=== PATIENT | male | born 1940 | race Caucasian/White ===

== ENCOUNTER 2017-03-06 12:49 | Observation (INO) ==
[2017-03-06 13:17] LABS: Basophils % 0.4 %; Eosinophils # 0.1 K/mcL (0.0-0.6); Eosinophils % 0.9 %; Hematocrit 43.2 % (37.5-50.1); Hemoglobin 14.7 g/dL (12.9-16.9); Immature Granulocytes % 0.4 % (0-4); Lymphocytes # 1.3 K/mcL (0.6-4.6); Lymphocytes % 13.5 %; Mean Corpuscular Hemoglobin 31.5 pg (28.0-33.3); Mean Corpuscular Volume 92.7 fL (83.0-100.0); Mean Platelet Volume 10.9 fL (9.4-12.4); Monocytes % 10.3 %; Neutrophils # 7.3 K/mcL (1.6-8.9); Platelet Count 185 K/mcL (140-400); Red Blood Count 4.66 M/mcL (4.19-5.50); Red Cell Distribution Width 13.3 % (11.5-14.5); Segmented Neutrophils % 74.5 %
[2017-03-06 13:22] LABS: INR 2.8; Prothrombin Time 31.5 Seconds (9.4-12.1)
[2017-03-06 13:34] LABS: Alanine Aminotransferase 24 Units/L (0-55); Albumin 3.6 g/dL (3.5-5.0); Albumin/Globulin Ratio 1.1 (1.1-2.2); Alkaline Phosphatase 124 Units/L (38-126); Aspartate Amino Transferase 25 Units/L (5-34); BUN/Creatinine Ratio 17 (6-26); Bilirubin,Direct 0.6 mg/dL (0.0-0.5); Bilirubin,Indirect 1.2 mg/dL (0.0-1.2); Bilirubin,Total 1.8 mg/dL (0.2-1.2); Blood Urea Nitrogen 18 mg/dL (8-26); Carbon Dioxide 24 mEq/L (19-29); Chloride 106 mEq/L (98-109); Globulin 3.3 g/dL (2.4-3.5); Glucose 85 mg/dL (70-99); Magnesium 1.8 mg/dL (1.6-2.6); Osmolality,Calculated 291 (280-300); Potassium 3.8 mEq/L (3.5-4.5); Sodium 140 mEq/L (136-145); Total Protein 6.9 g/dL (6.0-8.3); eGFR For African Americans > 60 (> 60); eGFR For Non-African Americans > 60 (> 60)
[2017-03-06 13:40] LABS: Ethanol < 10 mg/dL (0-10)
--- NOTE | 2017-03-06 13:43 | Emergency Department Note ---
Disposition Clinical Impression: Weakness, Bradycardia Disposition: Admitted As Inpatient Referrals: Em Queen MD [Primary Care Provider] - Forms: ED Satisfaction Letter General Adult HPI - General Chief complaint: ED Altered Mental Status Stated complaint: AMS Time Seen by Provider: 03/06/17 13:00 Source: patient Limitations: no limitations Nursing Notes Reviewed: Yes Vital Signs Reviewed: Yes - History of Present Illness HPI Narrative: Patient brought here for evaluation of weakness and near syncope. Patient has had multiple episodes today requiring him to sit on the floor. Episode started at 10 AM. Patient states that they were at Dr. Raines's, sifter and miller, for further investigation of loop recorder. Loop recorder was not about terminated at this time. Patient continues to feel generalized weakness. Patient has no focal deficits at this time. Finger to nose unov-it-aitt intact. 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 Responds to questions but is confused which the states is secondary to his dementia. Pain Scale: 0 - Related Data Home Medications Medication Instructions Recorded Confirmed Atorvastatin [Lipitor] 10 mg PO MOWEFR 03/06/17 03/06/17 Donepezil [Aricept] 10 mg PO HS 03/06/17 03/06/17 Fluticasone Propionate Nasal 50 mcg NS DAILY PRN 03/06/17 03/06/17 [Flonase] Memantine HCl 5 mg PO BID 03/06/17 03/06/17 Metoprolol [Lopressor] 50 mg PO BID 03/06/17 03/06/17 Nitroglycerin [Nitrostat] 0.4 mg SL Q5M PRN 03/06/17 03/06/17 Ubidecarenone [Co Q-10] 100 mg PO MOWEFR 03/06/17 03/06/17 Vit C/Vit E/Lutein/Min/[place]-3 1 each PO QAM 03/06/17 03/06/17 [Ocuvite Softgel] Warfarin [Coumadin] 3 mg PO QPM 03/06/17 03/06/17 Warfarin [Coumadin] 4 mg PO QPM 03/06/17 03/06/17 amLODIPine [Norvasc] 5 mg PO QAM 03/06/17 03/06/17 Allergies Allergy/AdvReac Type Severity Reaction Status Date / Time No Known Allergies Allergy Verified 08/28/15 20:37 Review of Systems: CONSTITUTIONAL: Weakness No weight loss, fever, chills, HEENT: Eyes: No visual changes. Ears, Nose, Throat: No hearing loss, difficulty talking or unable to swallow. SKIN: No rash or itching. CARDIOVASCULAR: Dizziness, lightheadedness No chest pain, chest pressure or chest discomfort. No palpitations or edema. RESPIRATORY: No shortness of breath, cough or sputum. GASTROINTESTINAL: No anorexia, nausea, vomiting or diarrhea. No abdominal pain or blood. GENITOURINARY: No burning on urination or hematuria. NEUROLOGICAL: dizziness, near- syncope; No headache, paralysis, ataxia, numbness or tingling in the extremities. No change in bowel or bladder control. MUSCULOSKELETAL: No muscle pain, back pain, joint pain or stiffness. Past Medical History - Past Medical History Medical history: Reports: coronary artery disease, dementia, hyperlipidemia, myocardial infarction, other Surgical history: Reports: other Psychiatric history: Reports: no psych history - Social History Smoking Status: Never smoker Smokeless Tobacco Status: No Alcohol use: Reports: none Drug use: Reports: none Physical Exam General appearance: NAD, conversant Eyes: anicteric sclerae, moist conjunctivae; PERRL HENT: Atraumatic; oropharynx clear with moist mucous membranes and no mucosal ulcerations Neck: Normal inspection; Trachea midline; FROM, supple Lungs: CTA, with normal respiratory effort and no intercostal retractions CV: RRR, no MRGs Abdomen: Soft, non-tender; no rebound or gaurding Extremities: No peripheral edema or extremity lymphadenopathy Skin: Normal temperature; no rash, ulcers or lesions Psych: Appropriate mood and affect - General Limitations: no limitations General appearance: alert - Expanded Neurological Exam Patient oriented to: Present: person, place. Absent: time Speech: Present: fluid speech Cranial nerves: EOM function (II, III, IV, ): Normal, facial sensation (V): Normal, facial palsy (VII): Normal, gag reflex (IX): Normal, spinal accessory function (XI): Normal, tongue deviation (XII): Normal Cerebellar function: finger to nose: Normal, heel to infante: Normal Motor strength - LUE: 5/5 Motor strength - RUE: 5/5 Motor strength - LLE: 5/5 Motor strength - RLE: 5/5 Sensory exam upper extremity: light touch: Normal Sensory exam lower extremity: light touch: Normal Coma Scale Eye Opening: Spontaneous Coma Scale Motor Response: Obeys Commands Coma Scale Verbal Response: Oriented Coma Scale Total: 15 Course - Reevaluation(s) Reevaluation #1: Patient remained stable at this time. Continued weakness. Patient has had episodes of bradycardia. Lab work is otherwise unremarkable. Head CT negative for acute stroke. Chest x-ray is unremarkable. Will discuss with the hospital team regarding further investigation of loop recorder and near-syncope. - Consultations Consultation #1: Discussed with Dr. Rao. Patient accepted for admission. Vital Signs Temperature 97.3 F L 03/06/17 12:53 Pulse Rate 58 03/06/17 12:53 Respiratory Rate 18 03/06/17 12:53 Blood Pressure 139/78 03/06/17 12:53 O2 Sat by Pulse Oximetry 96 03/06/17 12:53 Temperature 97.3 F L 03/06/17 12:53 Pulse Rate 54 03/06/17 16:00 Respiratory Rate 18 03/06/17 16:00 Blood Pressure 114/74 03/06/17 16:00 O2 Sat by Pulse Oximetry 99 03/06/17 16:00 Oxygen Delivery Oxygen Delivery Room Air Medical Decision Making - Medical Records Medical records reviewed: Yes I reviewed the patient's medical records. - Lab Data Lab results reviewed: Yes I reviewed the patient's lab results. Result diagrams: 03/06/17 12:42 03/06/17 12:42 Lab Results 03/06/17 03/06/17 03/06/17 Range/Units 12:42 12:42 12:42 WBC 9.8 (4.3-11.1) K/mcL RBC 4.66 (4.19-5.50) M/mcL Hgb 14.7 (12.9-16.9) g/dL Hct 43.2 (37.5-50.1) % MCV 92.7 (83.0-100.0) fL MCH 31.5 (28.0-33.3) pg MCHC 34.0 (31.6-35.5) g/dL RDW 13.3 (11.5-14.5) % Plt Count 185 (140-400) K/mcL MPV 10.9 (9.4-12.4) fL Immature Gran % 0.4 (0-4) % Seg Neutrophils % 74.5 % Lymphocytes % 13.5 % Monocytes % 10.3 % Eosinophils % 0.9 % Basophils % 0.4 % Neutrophils # 7.3 (1.6-8.9) K/mcL Lymphocytes # 1.3 (0.6-4.6) K/mcL Monocytes # 1.0 (0.0-1.3) K/mcL Eosinophils # 0.1 (0.0-0.6) K/mcL Basophils # 0.0 (0.0-0.2) K/mcL PT (9.4-12.1) Seconds INR Sodium 140 (136-145) mEq/L Potassium 3.8 (3.5-4.5) mEq/L Chloride 106 (98-109) mEq/L Carbon Dioxide 24 (19-29) mEq/L BUN 18 (8-26) mg/dL Creatinine 1.05 (0.72-1.25) mg/dL Est GFR ( Amer) > 60 (> 60) Est GFR (Non-Af Amer) > 60 (> 60) BUN/Creatinine Ratio 17 (6-26) Glucose 85 (70-99) mg/dL Calculated Osmolality 291 (280-300) Calcium 9.0 (8.6-10.8) mg/dL Magnesium 1.8 (1.6-2.6) mg/dL Total Bilirubin 1.8 H (0.2-1.2) mg/dL Direct Bilirubin 0.6 H (0.0-0.5) mg/dL Indirect Bilirubin 1.2 (0.0-1.2) mg/dL AST 25 (5-34) Units/L ALT 24 (0-55) Units/L Alkaline Phosphatase 124 (38-126) Units/L Troponin I 0.02 (0-0.03) ng/mL Serum Total Protein 6.9 (6.0-8.3) g/dL Albumin 3.6 (3.5-5.0) g/dL Globulin 3.3 (2.4-3.5) g/dL Albumin/Globulin Ratio 1.1 (1.1-2.2) TSH 2.774 (0.350-4.840) mcIU/mL Urine Color (Yellow) Urine Clarity (Clear) Urine pH (5.0-8.0) pH Units Ur Specific Effort (1.010-1.025) Urine Protein (Neg-Trace) mg/dL Urine Glucose (UA) (Normal) mg/dL Urine Ketones (Negative) mg/dL Urine Blood (Negative) Urine Nitrite (Negative) Urine Bilirubin (Negative) Urine Urobilinogen (Normal) mg/dL Ur Leukocyte Esterase (Negative) Urine Microscopic RBC (0-3) per hpf Urine Microscopic WBC (0-3) per hpf Ur Squamous Epith Cells (None-Few) per lpf Urine Bacteria (None-Few) per hpf Hyaline Casts (None-Few) per lpf Ur Culture Indicated? (NO) Ethyl Alcohol < 10 (0-10) mg/dL 03/06/17 03/06/17 Range/Units 12:42 14:40 WBC (4.3-11.1) K/mcL RBC (4.19-5.50) M/mcL Hgb (12.9-16.9) g/dL Hct (37.5-50.1) % MCV (83.0-100.0) fL MCH (28.0-33.3) pg MCHC (31.6-35.5) g/dL RDW (11.5-14.5) % Plt Count (140-400) K/mcL MPV (9.4-12.4) fL Immature Gran % (0-4) % Seg Neutrophils % % Lymphocytes % % Monocytes % % Eosinophils % % Basophils % % Neutrophils # (1.6-8.9) K/mcL Lymphocytes # (0.6-4.6) K/mcL Monocytes # (0.0-1.3) K/mcL Eosinophils # (0.0-0.6) K/mcL Basophils # (0.0-0.2) K/mcL PT 31.5 H (9.4-12.1) Seconds INR 2.8 Sodium (136-145) mEq/L Potassium (3.5-4.5) mEq/L Chloride (98-109) mEq/L Carbon Dioxide (19-29) mEq/L BUN (8-26) mg/dL Creatinine (0.72-1.25) mg/dL Est GFR ( Amer) (> 60) Est GFR (Non-Af Amer) (> 60) BUN/Creatinine Ratio (6-26) Glucose (70-99) mg/dL Calculated Osmolality (280-300) Calcium (8.6-10.8) mg/dL Magnesium (1.6-2.6) mg/dL Total Bilirubin (0.2-1.2) mg/dL Direct Bilirubin (0.0-0.5) mg/dL Indirect Bilirubin (0.0-1.2) mg/dL AST (5-34) Units/L ALT (0-55) Units/L Alkaline Phosphatase (38-126) Units/L Troponin I (0-0.03) ng/mL Serum Total Protein (6.0-8.3) g/dL Albumin (3.5-5.0) g/dL Globulin (2.4-3.5) g/dL Albumin/Globulin Ratio (1.1-2.2) TSH (0.350-4.840) mcIU/mL Urine Color Dark Yellow (Yellow) Urine Clarity Clear (Clear) Urine pH 6.0 (5.0-8.0) pH Units Ur Specific Effort 1.030 H (1.010-1.025) Urine Protein 30 H (Neg-Trace) mg/dL Urine Glucose (UA) Normal (Normal) mg/dL Urine Ketones 80 H (Negative) mg/dL Urine Blood Negative (Negative) Urine Nitrite Negative (Negative) Urine Bilirubin Negative (Negative) Urine Urobilinogen Normal (Normal) mg/dL Ur Leukocyte Esterase Negative (Negative) Urine Microscopic RBC 0-3 (0-3) per hpf Urine Microscopic WBC 0-3 (0-3) per hpf Ur Squamous Epith Cells Moderate H (None-Few) per lpf Urine Bacteria None Seen (None-Few) per hpf Hyaline Casts None Seen (None-Few) per lpf Ur Culture Indicated? NO (NO) Ethyl Alcohol (0-10) mg/dL - Radiology Data Radiology results reviewed: Yes I reviewed the patient's radiology results. - EKG Data EKG #1 EKG attestation: Yes I reviewed and interpreted this EKG. EKG results narrative: EKG shows sinus rhythm with ventricular rate of 66 bpm. W[place] 135. QRS 89. QTC 458. Patient has no significant ST elevations or depressions. Patient has T-wave inversions in the inferior leads. EKG consistent with previous EKG of 08/28/15.
[2017-03-06 13:54] LABS: Thyroid Stimulating Hormone 2.774 mcIU/mL (0.350-4.840)
--- NOTE | 2017-03-06 14:22 | Emergency Department Note ---
START Narrative - START START: I examined this patient and my medical decision-making was reviewed with the FOOD SERVICE AIDE/PA/Advanced Practice Nurse/Resident Physician. I agree with the documented findings, disposition and treatment plan as described except to the extent set forth below.
[2017-03-06 15:01] LABS: Bilirubin,Urine Negative (Negative); Blood,Urine Negative (Negative); Clarity,Urine Clear (Clear); Color,Urine Dark Yellow (Yellow); Glucose,Urine (UA) Normal (Normal); Ketones,Urine 80 mg/dL (Negative); Leukocyte Esterase,Urine Negative (Negative); Nitrite,Urine Negative (Negative); Protein,Urine 30 mg/dL (Neg-Trace); Urobilinogen,Urine Normal (Normal)
[2017-03-06 15:03] LABS: Bacteria,Urine None Seen per hpf (None-Few); Hyaline Casts,Urine None Seen per lpf (None-Few); RBC,Urine 0-3 per hpf (0-3); Squamous Epithelial Cell,Urine Moderate per lpf (None-Few); WBC,Urine 0-3 per hpf (0-3)
--- NOTE | 2017-03-06 18:13 | Event Note ---
Date of Encounter: 03/06/17 Time of Encounter: 18:11 Patient seen and examined with nurse practitioner. Patient presents with presyncopal episodes. He feels lightheaded sweaty prior to these episodes. Possibility of orthostasis versus cardiac arrhythmias. Will check orthostatics. He has a loop recorder that will be interrogated. Cardiology consultation. Syncope workup. He has no known prior history of coronary artery disease. No infectious etiology. telemetry Monitoring.
[2017-03-06] MEDS ORDERED: Ondansetron 4 MG/2 ML VIAL IVP PRN (18:54)
[2017-03-06] MEDS ORDERED: Naloxone 0.4 MG/ML INJ IVP PRN (18:54)
[2017-03-06] MEDS ORDERED: Acetaminophen 325 MG TABLET PO PRN (18:54)
[2017-03-06] MEDS ORDERED: Nitroglycerin 0.4 MG TAB.SUBL SL PRN (19:06)
[2017-03-06] MEDS ORDERED: Fluticasone Propionate Nasal 50 MCG/SPRAY BOTTLE NS PRN (19:06)
--- NOTE | 2017-03-06 19:10 | Internal Med History&Physical ---
Date of Encounter: 03/06/17 Time of Encounter: 18:00 Assessment and Plan (1) Pre-syncope Current visit: Yes Status: Acute Assess: Mr. Zamora presents with chief complaint of pre-syncopal episodes x 3 today (02/15). Patient reports episodes began at approximately 10 AM. Patient reports generalized weakness but has no focal deficits and neurological status is intact. Patient states presyncopal episodes have occurred in the past and he has become accustomed to sitting on the floor when he begins to feel altered. Patient reports he has a loop recorder and his loop recorder has been interrogated in the past due to similar episodes. Mr. Zamora's states he became diaphoretic during this episode. Plan: Cardiology consult ordered and placed for interrogation of loop recorder Continuous cardiac telemetry ordered EEG ordered EV echocardiogram ordered Bilateral carotid Doppler ordered Orthostatic BPs ordered Orthostatic vital signs ordered twice a day Hold Lopressor due to possible hypotension Hold Norvasc due to possible hypotension Falls precautions/[id number] only Monitor patient and vital signs (2) Dementia Current visit: Yes Status: Acute Assess: Patient presents with history of dementia. Plan: Continue Aricept Continue Namenda Qualifiers: Dementia type: unspecified type Dementia behavioral disturbance: without behavioral disturbance Qualified Code(s): F03.90 - Unspecified dementia without behavioral disturbance (3) CAD (coronary artery disease) Current visit: Yes Status: Acute Assess: Patient presents with history of chronic coronary artery disease. Patient currently has loop recorder and has experienced presyncopal episodes in the past with loop recorder interrogation required. Plan: Cardiology consult ordered and placed for interrogation of loop recorder Continuous cardiac telemetry ordered EEG ordered EV echocardiogram ordered Bilateral carotid Doppler ordered Continue Lipitor Qualifiers: Coronary Disease-Associated Artery/Lesion type: unspecified vessel or lesion type [place] vs. transplanted heart: [place] heart Associated angina: angina presence unspecified Qualified Code(s): I25.10 - Atherosclerotic heart disease of [place] coronary artery without angina pectoris (4) Hyperlipidemia Current visit: Yes Status: Acute Assess: Patient presents with history of chronic hyperlipidemia. Plan: Continue Lipitor Lipid panel ordered Qualifiers: Hyperlipidemia type: unspecified Qualified Code(s): E78.5 - Hyperlipidemia , unspecified (5) DVT prophylaxis Current visit: Yes Status: Acute Assess: Patient to be placed on DVT prophylaxis due to inpatient protocol. Plan: Continue Coumadin therapy Anti-embolic stockings ordered Internal Medicine - H&P: HPI Chief complaint: Pre-syncope Admitted From: Emergency Dept Plans for Post Hospital Care: Home History of present illness: Mr. Zamora is a 77 year old male presents from the ED with chief complaint of pre -syncopal episodes x 3 today (03/06/17). Patient reports episodes began at approximately 10 AM. Patient reports generalized weakness but has no focal deficits and neurological status is intact. Patient states presyncopal episodes have occurred in the past and he has become accustomed to sitting on the floor when he begins to feel altered. Patient reports he has a loop recorder and his loop recorder has been interrogated in the past due to similar episodes. Mr. Zamora's states he became diaphoretic during this episode. Denies recent illness, fever, chills, chest pressure or discomfort, anorexia, nausea, vomiting, or diarrhea. Patient to be admitted as observation status with cardiology consult ordered and placed with Dr. Arreola. Patient will have orthostatic BP and vital signs, EV echocardiogram, bilateral carotid Doppler, EEG, and continuous cardiac telemetry. Patient is falls precautions with up-with -assist only when out of bed. Patient to be monitored closely. Past Med Surg Social Fam HX - Past Medical History Source: patient Medical history: atrial fibrillation, coronary artery disease, dementia, hyperlipidemia, myocardial infarction, other Psychiatric history: no psych history - Past Surgical History Surgical History: angioplasty/stent, other - Social History Smoking Status: Former smoker (Reports quitting in 1986) Packs per day: 4 PPD Smokeless Tobacco Status: No Alcohol use: none Drug use: none Occupational status: retired Current living situation: Home, With Family Activity Level: Independent ambulation Recent Out of Country Travel Within the Last 8 Weeks: No Exposure or Possible Exposure to Illness During Travel: No - Family History Mother Race: Family Member Ethnicity: Non- Living Status: Age at : 76 Hx Family Cardiac Disorders: Yes (HD) Hx Family Neurologic Disorders: Yes (Alzheimer's disease) Father Race: Family Member Ethnicity: Non- Living Status: Age at : 50 Cause of : Brain aneurysm Hx Family Cardiac Disorders: Yes (Brain aneurysm) Brother Race: Family Member Ethnicity: Non- Living Status: Age at : 49 Cause of : Esophageal cancer Hx Family Cardiac Disorders: Yes (Esophageal) Sister Race: Family Member Ethnicity: Non- Living Status: Age at : 70 Cause of : [place] Hx Family Cardiac Disorders: Yes ([place]) Internal Medicine - H&P: Meds Atorvastatin [Lipitor] 10 mg PO MOWEFR 03/06/17 [History] Donepezil [Aricept] 10 mg PO HS 03/06/17 [History] Fluticasone Propionate Nasal [Flonase] 50 mcg NS DAILY PRN 03/06/17 [History] Memantine HCl 5 mg PO BID 03/06/17 [History] Metoprolol [Lopressor] 50 mg PO BID 03/06/17 [History] Nitroglycerin [Nitrostat] 0.4 mg SL Q5M PRN 03/06/17 [History] Ubidecarenone [Co Q-10] 100 mg PO MOWEFR 03/06/17 [History] Vit C/Vit E/Lutein/Min/[place]-3 [Ocuvite Softgel] 1 each PO QAM 03/06/17 [History ] Warfarin [Coumadin] 3 mg PO QPM 03/06/17 [History] Warfarin [Coumadin] 4 mg PO QPM 03/06/17 [History] amLODIPine [Norvasc] 5 mg PO QAM 03/06/17 [History] Allergies No Known Allergies Allergy (Verified 08/28/15 20:37) All Systems PM: A 10-system review of systems was performed and is negative for pertinent findings except as documented above in the HPI. - Constitutional Constitutional: as per HPI, weakness, no chills, no fever(s), no night sweats - EENT Eyes: no change in vision, no discharge, no pain, no photophobia Ears: no ear discharge, no ear pain, no tinnitus Nose, mouth and throat: no dysphagia, no nasal discharge, no neck pain, no sore throat - Breasts Breasts: as per HPI - Cardiovascular Cardiovascular ROS IM: as per HPI, diaphoresis, syncope (Pre-syncope x3), no chest pain, no dyspnea, no lightheadedness, no palpitations - Respiratory Respiratory: no cough, no dyspnea, no wheezing, no excessive phlegm production - Gastrointestinal Gastrointestinal: no abdominal pain, no diarrhea, no hematemesis, no hematochezia, no melena, no nausea, no vomiting - Genitourinary Genitourinary ROS male: as per HPI - Musculoskeletal Musculoskeletal ROS IM: no numbness, no tingling - Integumentary Integumentary IM: no rash, no unusual bruising - Neurological Neurological ROS: no confusion, no convulsions, no focal weakness, no numbness, no tingling, no tremor(s) - Psychiatric Psychiatric: as per HPI - Endocrine Endocrine IM: as per HPI - Hematologic/Lymphatic Hematologic/Lymphatic: no easy bruising - Allergic/Immunologic Allergic/Immunologic: as per HPI - Constitutional Vitals: Temp Pulse Resp BP Pulse Ox 98.3 F 55 16 146/73 96 03/06/17 17:28 03/06/17 17:28 03/06/17 17:28 03/06/17 17:28 03/06/17 17:28 General appearance: Present: cooperative, A&O X 3, pleasant, no acute distress, answers questions appropriately - Head Head exam: Present: atraumatic, normocephalic - Eye Eye exam: Present: PERRL, conjuntiva pink, sclera anicteric Pupils: Present: PERRL - ENT ENT exam: Present: normal exam, normal external ear exam - Neck Neck exam general surgery: Present: supple, trachea midline. Absent: lymphadenopathy - Respiratory Respiratory exam: Present: CTAB. Absent: accessory muscle use, rales, rhonchi, wheezes - Cardiovascular Cardiovascular exam: Present: RRR, +S1, +S2. Absent: diastolic murmur, gallop, rubs, systolic murmur - GI/Abdominal GI/Abdominal exam: Present: normal bowel sounds, soft, no peritoneal signs. Absent: distended, tenderness - Rectal Rectal exam: Present: deferred - Additional comments: exam deferred. - Extremities Exam Extremities exam: Present: warm, radial pulses palpable and symetrical. Absent : calf tenderness, cyanotic, pedal edema - Back Exam Back exam: Present: normal inspection - Neurological Exam Neurological exam: Present: CN II-XII intact, oriented X3, no focal deficits. Absent: pronater drift, facial droop, speech deficit - Psychiatric Psychiatric exam: Present: normal affect, normal mood - Skin Skin exam: Present: dry, intact Internal Med - H&P Results - Labs CBC & Chem 7: 03/06/17 12:42 03/06/17 12:42 - EKG Data EKG shows normal: sinus rhythm Rate: normal - EKG Data Prior EKG available for review: yes Interpretation IM: normal EKG EKG comments: 03/06/17 19:24 EKG dated 08/28/15 shows sinus bradycardia, voltage criteria for LVH EKG dated 03/06/17 shows sinus rhythm - Diagnostic Studies Chest x-ray Additional comments: 1-View CXR of chest dated 03/06/17 shows no evidence of acute cardiopulmonary disease. No pneumonia, edema or other acute pulmonary process is demonstrated. Cardiac size is within normal limits. No evidence of pneumothorax. Cardiac and mediastinal silhouette is unchanged. No pleural effusion. CT scan - head Additional comments: Impressions Head CT 03/06/17 13:02 IMPRESSION: 1. No acute intracranial abnormality. 2. Mild chronic microvascular white matter ischemic disease with associated cerebral and cerebellar parenchymal volume loss. 3. Chronic right cerebellar hemisphere infarct. D/ / 03/06/2017 14:09:44 Driss Slaughter MD / víctor Interpreting Provider: Driss Slaughter MD
[2017-03-06] MEDS ORDERED: (Ubidecarenone [Co Q-10] 100 MG) PO SCH (19:15)
[2017-03-06 19:29] LABS: Hemoglobin A1C 5.1 %
[2017-03-07 00:48] LABS: INR 2.7; Prothrombin Time 29.8 Seconds (9.4-12.1)
[2017-03-07 00:51] LABS: Activated Partial Thrombo Time 43.5 Seconds (26.0-36.0)
[2017-03-07 00:57] LABS: Basophils # 0.1 K/mcL (0.0-0.2); Basophils % 0.7 %; Eosinophils # 0.3 K/mcL (0.0-0.6); Hematocrit 45.6 % (37.5-50.1); Hemoglobin 15.2 g/dL (12.9-16.9); Immature Granulocytes % 0.1 % (0-4); Lymphocytes # 2.1 K/mcL (0.6-4.6); Lymphocytes % 30.7 %; Mean Corpuscular HGB Conc 33.3 g/dL (31.6-35.5); Mean Corpuscular Hemoglobin 30.8 pg (28.0-33.3); Mean Corpuscular Volume 92.5 fL (83.0-100.0); Mean Platelet Volume 10.8 fL (9.4-12.4); Monocytes # 0.9 K/mcL (0.0-1.3); Monocytes % 12.9 %; Neutrophils # 3.4 K/mcL (1.6-8.9); Platelet Count 201 K/mcL (140-400); Red Blood Count 4.93 M/mcL (4.19-5.50); Red Cell Distribution Width 13.2 % (11.5-14.5); Segmented Neutrophils % 50.6 %
[2017-03-07 00:58] LABS: Alanine Aminotransferase 25 Units/L (0-55); Albumin 3.6 g/dL (3.5-5.0); Alkaline Phosphatase 133 Units/L (38-126); Aspartate Amino Transferase 25 Units/L (5-34); BUN/Creatinine Ratio 16 (6-26); Bilirubin,Total 1.9 mg/dL (0.2-1.2); Blood Urea Nitrogen 16 mg/dL (8-26); Calcium 9.4 mg/dL (8.6-10.8); Carbon Dioxide 28 mEq/L (19-29); Chloride 104 mEq/L (98-109); Cholesterol 202 mg/dL (< 200); Globulin 3.6 g/dL (2.4-3.5); Glucose 76 mg/dL (70-99); Magnesium 1.9 mg/dL (1.6-2.6); Osmolality,Calculated 294 (280-300); Potassium 3.4 mEq/L (3.5-4.5); Sodium 142 mEq/L (136-145); Total Protein 7.2 g/dL (6.0-8.3); Triglycerides 88 mg/dL (< 150); eGFR For African Americans > 60 (> 60); eGFR For Non-African Americans > 60 (> 60)
[2017-03-07 00:59] LABS: Chol/HDL Ratio 4.7 (0-4.9); HDL Cholesterol 43 mg/dL (40-59); LDL Cholesterol,Calculated 141 mg/dL (0-99)
--- NOTE | 2017-03-07 07:24 | Carotid Imaging Report ---
Carotid Duplex Patient Name:Sam Zamora Order Number:[id number] Procedure Date:03/06/2017 Date:1940Age:77 yrs Gender:Male Lt BP:146 / 73 mmHg Rt.BP:145 / 73 mmHgHeart Rate: Location:[facility] Room #: 2A32 Optician Manager:Ely Peralta Referring MD:Carlito Duarte CNP [employer] faculty member:None Reading MD:Robinson Bush MD Primary Indications:Pre-syncope x3 Risk Factors Yes/No Hypertension Hypercholesterolemia Smoker Previous Impressions: The right internal carotid artery has a 40-59% stenosis. The left carotid artery has minimal plaque throughout. Recommendations: Risk factor reduction. Follow-up carotid duplex in 1 year. Findings Carotid Duplex: Right: There is nonstenotic plaque in the right mid common carotid artery. There is smooth heterogeneous plaque. There is nonstenotic plaque in the right distal common carotid artery. There is irregular heterogeneous plaque. There is 40-59% stenosis in the right bifurcation. There is calcified plaque. There is 40-59% stenosis in the right proximal internal carotid artery. There is irregular heterogeneous plaque. Left: There is nonstenotic plaque in the left mid common carotid artery. There is smooth heterogeneous plaque. There is nonstenotic plaque in the left distal common carotid artery. There is smooth heterogeneous plaque. There is nonstenotic plaque in the left bifurcation. There is calcified plaque. There is nonstenotic plaque in the left proximal internal carotid artery. There is smooth heterogeneous plaque. Carotid Results Right PSV EDV Assessment Proximal CCA 99 15 Normal Mid CCA 97 21 Non Stenotic Plaque Distal CCA 99 22 Non Stenotic Plaque Bifurcation 117 29 40-59% stenosis Proximal ICA 143 32 40-59% stenosis Mid ICA 77 27 Normal Distal ICA 78 22 Normal ECA 131 10 Normal Vertebral Artery 47 8 Antegrade Flow Left PSV EDV Assessment Proximal CCA 69 13 Normal Mid CCA 65 17 Non Stenotic Plaque Distal CCA 82 14 Non Stenotic Plaque Bifurcation 45 10 Non Stenotic Plaque Proximal ICA 68 10 Non Stenotic Plaque Mid ICA 44 14 Normal Distal ICA 40 13 Normal ECA 88 15 Normal Vertebral Artery 46 9 Antegrade Flow Ratio's Right ICA/CCA Ratio: 1.47 ICA/CCA Values: 143/97 Left ICA/CCA Ratio: 1.05 ICA/CCA Values: 68/65 Updated by Robinson Bush MD on 03/07/2017 7:16:02 AM electronically signed on 03/07/2017 7:16:15 AM with status of Final
[2017-03-07] MEDS ORDERED: LUTEIN PO SCH (09:00)
[2017-03-07] MEDS ORDERED: VIT E PO SCH (09:00)
[2017-03-07] MEDS ORDERED: VIT C PO SCH (09:00)
[2017-03-07] MEDS ORDERED: OMEGA E PO SCH (09:00)
--- NOTE | 2017-03-07 11:26 | EEG/EMG/Oth Biometrics Report ---
EEG Procedure Report Date of procedure: 03/07/17 (Patient experiencing episodes of "presyncope") EEG Procedure: Routine EEG Procedure Note: This is a report of a 21 channel bipolar and referential montage EEG. There is no clearly identifiable posterior dominant alpha rhythm present at any time during the recording. The resting rhythm consists primarily of low-voltage theta as well as mixed theta frequencies. The rhythm is not reactive to eye opening. Hyperventilation is not performed during the recording. There is no sleep architecture identified during the study. The prevailing background frequencies consistent of mixed low voltage theta and anterior beta frequencies. Photic stimulation is performed and does not produce a driving response. The EKG rhythm strip reveals normal sinus rhythm at 72-78 beats per minute, with occasional PVCs. Impressions: This EEG recording is mildly abnormal and is consistent with a mild generalized encephalopathy. There is no evidence of epileptiform activity identified during the study. Comment: Beta frequencies are indeed recognized as a normal variant, however many also represent a posterior metabolic abnormalities as well as medication effect primarily benzodiazepines and barbiturates. A normal EEG does not preclude a diagnosis of seizure or epilepsy. If the clinical suspicion for seizure activity is high, serial EEGs or perhaps a prolonged recording may increase the yield. Please correlate clinically. The documentation in the history of HPI and plan were at least partially created by [employer] voice recognition technology by Dr. Dominguez. Errors in grammar, wording or other phrases may exist. If errors are found after the documentation signed, they will be addressed individually in the addendum section of this document when appropriate.
[2017-03-07 12:14] VITALS: BP 128/65
--- NOTE | 2017-03-07 13:36 | Event Note ---
Date of Encounter: 03/07/17 Time of Encounter: 14:26 - Cardiology Event Note Inpatient device check completed for Mr. Zamora for near syncope occurring around 1030 am while he was rotatilling his garden. Loop recorder check did not show any concerning arrhythmias at that time. Last recorded event was a short 18 second run of narrow complex tachycardia, HR 177 bpm on 03/07/17 at 0650am. 3 second pause seen on 02/24/17 at 2130. Telemetry review over last 24 hours shows SR with PAF. Avg HR 77 bpm. Patient has a history of afib and is currently on coumadin. Please call with questions.
--- NOTE | 2017-03-07 15:55 | Internal Med Progress Note ---
Date of Encounter: 03/07/17 Time of Encounter: 09:35 - Assessment and plan (1) Pre-syncope Current Visit: Yes Status: Acute Assessment and plan: Negative EEG for any seizure-like activity. 40-59% stenosis in the right internal carotid with minimal plaque in the left. 2-D echocardiogram shows normal ejection fraction of 60% with mild left-ventricular decide diastolic dysfunction. No evidence of PFO. Awaiting physical therapy evaluation. Check orthostatics. Will resume metoprolol at low dose. Cardiology recommends outpatient follow-up as patient's implantable loop recorder did not pear picker any serious abnormal rhythms besides A. fib. (2) Atrial fibrillation Current Visit: Yes Status: Chronic Assessment and plan: Patient's loop recorder was evaluated. Patient did not have any abnormalities during his episode yesterday. He did have episodes of narrow complex tachycardia concerning for A. fib. Patient is currently anticoagulated on Coumadin. Will resume metoprolol at a lower dose. Qualifiers: Atrial fibrillation type: paroxysmal Qualified Code(s): I48.0 - Paroxysmal atrial fibrillation (3) CAD (coronary artery disease) Current Visit: Yes Status: Chronic Assessment and plan: No chest pain. Continue statin and metoprolol Qualifiers: Coronary Disease-Associated Artery/Lesion type: unspecified vessel or lesion type [place] vs. transplanted heart: [place] heart Associated angina: angina presence unspecified Qualified Code(s): I25.10 - Atherosclerotic heart disease of [place] coronary artery without angina pectoris (4) Dementia Current Visit: Yes Status: Chronic Assessment and plan: On Namenda and Aricept Qualifiers: Dementia type: unspecified type Dementia behavioral disturbance: without behavioral disturbance Qualified Code(s): F03.90 - Unspecified dementia without behavioral disturbance (5) Hyperlipidemia Current Visit: No Status: Chronic Assessment and plan: On atorvastatin Qualifiers: Hyperlipidemia type: mixed hyperlipidemia Qualified Code(s): E78.2 - Mixed hyperlipidemia - Subjective Interval history: Patient is feeling better today. No new episodes of lightheadedness or dizziness. Has been able to ambulate to the bathroom without any issues. No palpitations. No fever chills. No chest pain. No shortness of breath. No seizure-like activity. No focal weakness - Constitutional Vitals: Temp Pulse Resp BP Pulse Ox 97.7 F 63 16 128/65 93 03/07/17 12:13 03/07/17 12:13 03/07/17 12:13 03/07/17 12:13 03/07/17 12:13 General appearance: Present: cooperative, A&O X 3, pleasant, no acute distress, answers questions appropriately - Respiratory Respiratory exam: Present: CTAB. Absent: accessory muscle use, rales, rhonchi, wheezes - Cardiovascular Cardiovascular exam: Present: RRR, +S1, +S2. Absent: diastolic murmur, gallop, rubs, systolic murmur - GI/Abdominal GI/Abdominal exam: Present: normal bowel sounds, soft, no peritoneal signs. Absent: distended, tenderness - Extremities Exam Extremities exam: Present: warm, radial pulses palpable and symetrical. Absent : calf tenderness, cyanotic, pedal edema Internal Medicine: Result - Labs CBC & Chem 7: 03/07/17 00:35 03/07/17 00:35 Labs: Short CBC 03/07/17 Range/Units 00:35 WBC 6.7 (4.3-11.1) K/mcL Hgb 15.2 (12.9-16.9) g/dL Hct 45.6 (37.5-50.1) % Plt Count 201 (140-400) K/mcL Neutrophils # 3.4 (1.6-8.9) K/mcL BMP 03/07/17 00:35 Sodium 142 Potassium 3.4 L Chloride 104 Carbon Dioxide 28 BUN 16 Creatinine 0.98 Glucose 76 Calcium 9.4 Cardiac Enzymes 03/06/17 03/07/17 Range/Units 19:10 00:35 Troponin I 0.01 0.02 (0-0.03) ng/mL Liver Function 03/07/17 Range/Units 00:35 Total Bilirubin 1.9 H (0.2-1.2) mg/dL AST 25 (5-34) Units/L ALT 25 (0-55) Units/L Alkaline Phosphatase 133 H (38-126) Units/L Albumin 3.6 (3.5-5.0) g/dL - ABG Interpretation ABG results: PT/INR, D-dimer PT 29.8 Seconds (9.4-12.1) H 03/07/17 00:35 Consult Discharge Plan - Plan Referrals: Em Queen MD [Primary Care Provider] - 03/15/17 2:30 pm (Please follow up as schedule...you will be seeing Lian Gee ) - Attending Attestation This document has been at least partially created by [employer] recognition technology by Dr. Diaz. Errors in grammar, wording or other phrases may exist. If errors are found after the documentation is signed, they will be addressed individually in the addendum section of this document when appropriate.
[2017-03-07] MEDS ORDERED: *HR* Warfarin 4 MG TABLET PO SCH ×2 (18:00)
[2017-03-07] MEDS ORDERED: *HR* Warfarin 3 MG TABLET PO SCH ×2 (18:00)
--- NOTE | 2017-03-07 23:44 | Electrocardiograph Report ---
[place] [id number] Test Date: 2017-03-06 Pat Name: Sam Zamora Department: 102 Room: [facility] Gender: M Media Account Executive: Nancy : 1940 Requested By: Roldan Van Order Number: [id number] Reading MD: Olimpia Raines Measurements Intervals [place] Rate: 66 P: 17 ID: [id number] QRS: 3 QRSD: 89 T: 17 QT: 445 QTc: 458 Interpretive Statements SINUS RHYTHM Electronically Signed On 03-07-2017 23:42:06 EDT by Olimpia Raines
== END 2017-03-07 16:32 | disposition left against medical advice (07) ==
LOC: EMEROO 12:49 → 2ANU 12:49 → SUATTDRO 16:50 → 2ANU 17:19
PROVIDERS: ADMIT Hospitalist; ATTEND Internal Medicine

== ENCOUNTER 2021-02-07 06:40 | Observation (INO) ==
[2021-02-07 07:47] LABS: Basophils # 0.1 K/mcL (0.0-0.2); Basophils % 0.9 %; Eosinophils # 0.3 K/mcL (0.0-0.6); Eosinophils % 4.2 %; Hematocrit 44.7 % (37.5-50.1); Hemoglobin 14.2 g/dL (12.9-16.9); Immature Granulocytes % 0.3 % (0-4); Lymphocytes # 1.6 K/mcL (0.6-4.6); Lymphocytes % 24.8 %; Mean Corpuscular HGB Conc 31.8 g/dL (31.6-35.5); Mean Corpuscular Hemoglobin 30.1 pg (28.0-33.3); Mean Corpuscular Volume 94.9 fL (83.0-100.0); Mean Platelet Volume 10.5 fL (9.4-12.4); Monocytes % 15.7 %; Neutrophils # 3.5 K/mcL (1.6-8.9); Platelet Count 290 K/mcL (140-400); Red Blood Count 4.71 M/mcL (4.19-5.50); Red Cell Distribution Width 13.3 % (11.5-14.5); Segmented Neutrophils % 54.1 %; White Blood Count 6.4 K/mcL (4.3-11.1)
[2021-02-07 07:58] LABS: INR 3.3; Prothrombin Time 36.4 Seconds (9.4-12.1)
[2021-02-07 08:27] LABS: Amphetamine Screen,Urine Negative ng/mL (Cutoff=1000); Barbiturate Screen,Urine Negative ng/mL (Cutoff=200)
[2021-02-07 08:28] LABS: Benzodiazepines Screen,Urine Negative ng/mL (Cutoff=300); Cannabinoid Screen,Urine Negative ng/mL (Cutoff = 50); Cocaine Screen,Urine Negative ng/mL (Cutoff= 300); Opiate Screen,Urine Negative ng/mL (Cutoff=300); Phencyclidine Screen,Urine Negative ng/mL (Cutoff=25)
[2021-02-07 08:40] LABS: Acetaminophen < 10 mcg/mL (10-20); Alanine Aminotransferase 43 Units/L (7-52); Albumin 3.6 g/dL (3.5-5.7); Albumin/Globulin Ratio 1.1 (1.1-2.2); Alkaline Phosphatase 164 Units/L (34-104); Aspartate Amino Transferase 45 Units/L (13-39); BUN/Creatinine Ratio 16 (6-26); Bilirubin,Direct 0.2 mg/dL (0.0-0.2); Bilirubin,Indirect 0.9 mg/dL (0.0-1.0); Bilirubin,Total 1.1 mg/dL (0.3-1.0); Blood Urea Nitrogen 17 mg/dL (8-23); Calcium 10.9 mg/dL (8.6-10.3); Carbon Dioxide 31 mEq/L (23-29); Chloride 105 mEq/L (98-107); Ethanol < 10 mg/dL (Less than 10); Globulin 3.2 g/dL (2.4-3.5); Glucose 95 mg/dL (70-105); Osmolality,Calculated 299 (280-300); Potassium 3.9 mEq/L (3.5-5.1); Salicylate < 2.5 mg/dL (15.0-30.0); Sodium 144 mEq/L (136-145); Total Protein 6.8 g/dL (6.4-8.9); eGFR For African Americans > 60 (> 60); eGFR For Non-African Americans > 60 (> 60)
[2021-02-07 08:48] LABS: Bacteria,Urine Few per hpf (None-Few); Calcium Oxalate Crystals,Urine Present per hpf; Hyaline Casts,Urine Few per lpf (None Seen); Mucus,Urine Many per lpf (None-Few); Squamous Epithelial Cell,Urine Few per hpf (None-Few); WBC,Urine TNTC per hpf (0-3)
[2021-02-07 08:54] LABS: Bilirubin,Urine Negative (Negative); Blood,Urine Trace (Negative); Clarity,Urine Turbid (Clear); Color,Urine Yellow (Yellow); Glucose,Urine (UA) Normal (Normal); Ketones,Urine Negative (Negative); Leukocyte Esterase,Urine Large (Negative); Nitrite,Urine Negative (Negative); Protein,Urine 30 mg/dL (Neg-Trace); Specific Gravity,Urine 1.026 (1.010-1.025); Urobilinogen,Urine Normal (Normal)
[2021-02-07] MEDS ORDERED: cefTRIAXone 1,000 MG in 0.9 % Sodium Chloride Mini Bag 100 ML IVPB ONE (09:07)
[2021-02-07 09:27] LABS: Troponin I < 0.03 ng/mL (< 0.04)
[2021-02-07] MEDS ORDERED: Mag Hydrox/Al Hydrox/Simeth 30 ML UDC PO PRN (10:29)
[2021-02-07] MEDS ORDERED: Ondansetron ODT 4 MG TAB.RAPDIS SL PRN (10:29)
[2021-02-07] MEDS ORDERED: Naloxone 0.4 MG/ML INJ IVP PRN (10:29)
[2021-02-07] MEDS ORDERED: MOM Conc 10 ML UD.LIQ PO PRN (10:29)
[2021-02-07] MEDS: Ringers Solution, Lactated 1,000 ML IVC SCH (11:06)
[2021-02-07] MEDS: Melatonin 3 MG TABLET PO PRN (19:35)
[2021-02-07] MEDS ORDERED: Haloperidol Lactate 5 MG/ML VIAL IM ONE (20:02)
[2021-02-08 04:37] LABS: Hematocrit 39.2 % (37.5-50.1); Hemoglobin 12.8 g/dL (12.9-16.9); Mean Corpuscular HGB Conc 32.7 g/dL (31.6-35.5); Mean Corpuscular Hemoglobin 30.6 pg (28.0-33.3); Mean Corpuscular Volume 93.8 fL (83.0-100.0); Mean Platelet Volume 10.6 fL (9.4-12.4); Platelet Count 230 K/mcL (140-400); Red Blood Count 4.18 M/mcL (4.19-5.50); Red Cell Distribution Width 13.4 % (11.5-14.5); White Blood Count 5.4 K/mcL (4.3-11.1)
[2021-02-08 04:49] LABS: BUN/Creatinine Ratio 17 (6-26); Blood Urea Nitrogen 15 mg/dL (8-23); Calcium 10.2 mg/dL (8.6-10.3); Carbon Dioxide 31 mEq/L (23-29); Chloride 106 mEq/L (98-107); Glucose 97 mg/dL (70-105); Magnesium 1.8 mg/dL (1.6-2.6); Osmolality,Calculated 295 (280-300); Potassium 3.4 mEq/L (3.5-5.1); Sodium 142 mEq/L (136-145); eGFR For African Americans > 60 (> 60); eGFR For Non-African Americans > 60 (> 60)
[2021-02-08] MEDS ORDERED: *HR* Enoxaparin 40 MG/0.4 ML SYRINGE SQ SCH (07:00)
[2021-02-08] MEDS: cefTRIAXone 1,000 MG in Water for inj. (sterile) 10 ML IVP SCH (08:00)
[2021-02-08] MEDS: Ringers Solution, Lactated 1,000 ML IVC SCH (13:51)
[2021-02-08 15:40] LABS: INR 2.7; Prothrombin Time 30.2 Seconds (9.4-12.1)
[2021-02-08] MEDS ORDERED: *HR* Warfarin 3 MG TABLET PO ONE (18:00)
[2021-02-08] MEDS ORDERED: Warfarin perPT PO PRN (18:00)
[2021-02-08] MEDS: OLANZapine 5 MG TAB.RAPDIS PO SCH (20:42)
[2021-02-09] MEDS: Acetaminophen 325 MG TABLET PO PRN (02:40)
[2021-02-09] MEDS: Melatonin 3 MG TABLET PO PRN (02:40)
[2021-02-09] MEDS: OLANZapine 5 MG TAB.RAPDIS PO SCH ×2 (07:23→20:57)
[2021-02-09] MEDS: amLODIPine 5 MG TABLET PO SCH (07:23)
[2021-02-09] MEDS: cefTRIAXone 1,000 MG in Water for inj. (sterile) 10 ML IVP SCH (07:25)
[2021-02-09 09:44] LABS: Hematocrit 40.1 % (37.5-50.1); Hemoglobin 13.1 g/dL (12.9-16.9); Mean Corpuscular HGB Conc 32.7 g/dL (31.6-35.5); Mean Corpuscular Hemoglobin 30.4 pg (28.0-33.3); Mean Platelet Volume 10.7 fL (9.4-12.4); Platelet Count 226 K/mcL (140-400); Red Blood Count 4.31 M/mcL (4.19-5.50); Red Cell Distribution Width 13.2 % (11.5-14.5); White Blood Count 5.4 K/mcL (4.3-11.1)
[2021-02-09 09:46] LABS: INR 2.4; Prothrombin Time 27.1 Seconds (9.4-12.1)
[2021-02-09 10:18] LABS: BUN/Creatinine Ratio 14 (6-26); Blood Urea Nitrogen 11 mg/dL (8-23); Calcium 9.6 mg/dL (8.6-10.3); Carbon Dioxide 28 mEq/L (23-29); Chloride 107 mEq/L (98-107); Glucose 89 mg/dL (70-105); Magnesium 1.8 mg/dL (1.6-2.6); Osmolality,Calculated 291 (280-300); Potassium 3.7 mEq/L (3.5-5.1); Sodium 141 mEq/L (136-145); eGFR For African Americans > 60 (> 60); eGFR For Non-African Americans > 60 (> 60)
[2021-02-09] MEDS ORDERED: *HR* Warfarin 3 MG TABLET PO ONE (18:00)
[2021-02-10] MEDS: Melatonin 3 MG TABLET PO PRN ×2 (03:53→21:25)
[2021-02-10 06:59] LABS: Hematocrit 39.5 % (37.5-50.1); Hemoglobin 13.1 g/dL (12.9-16.9); Mean Corpuscular HGB Conc 33.2 g/dL (31.6-35.5); Mean Corpuscular Hemoglobin 30.8 pg (28.0-33.3); Mean Corpuscular Volume 92.9 fL (83.0-100.0); Mean Platelet Volume 10.6 fL (9.4-12.4); Platelet Count 219 K/mcL (140-400); Red Blood Count 4.25 M/mcL (4.19-5.50); Red Cell Distribution Width 13.4 % (11.5-14.5); White Blood Count 5.4 K/mcL (4.3-11.1)
[2021-02-10 07:08] LABS: Prothrombin Time 22.5 Seconds (9.4-12.1)
[2021-02-10] MEDS: amLODIPine 5 MG TABLET PO SCH (07:40)
[2021-02-10] MEDS: Cefdinir 300 MG CAPSULE PO SCH ×2 (07:40→21:26)
[2021-02-10] MEDS: OLANZapine 5 MG TAB.RAPDIS PO SCH ×2 (07:40→21:25)
[2021-02-10 07:47] LABS: BUN/Creatinine Ratio 17 (6-26); Blood Urea Nitrogen 14 mg/dL (8-23); Calcium 9.6 mg/dL (8.6-10.3); Carbon Dioxide 28 mEq/L (23-29); Chloride 106 mEq/L (98-107); Glucose 88 mg/dL (70-105); Osmolality,Calculated 290 (280-300); Potassium 3.8 mEq/L (3.5-5.1); Sodium 140 mEq/L (136-145); eGFR For African Americans > 60 (> 60); eGFR For Non-African Americans > 60 (> 60)
[2021-02-10] MEDS: Acetaminophen 325 MG TABLET PO PRN (17:12)
[2021-02-10] MEDS ORDERED: *HR* Warfarin 3 MG TABLET PO ONE (18:00)
[2021-02-11 05:23] LABS: Hematocrit 40.2 % (37.5-50.1); Hemoglobin 13.2 g/dL (12.9-16.9); Mean Corpuscular HGB Conc 32.8 g/dL (31.6-35.5); Mean Corpuscular Hemoglobin 30.8 pg (28.0-33.3); Mean Corpuscular Volume 93.7 fL (83.0-100.0); Mean Platelet Volume 10.5 fL (9.4-12.4); Platelet Count 213 K/mcL (140-400); Red Blood Count 4.29 M/mcL (4.19-5.50); Red Cell Distribution Width 13.4 % (11.5-14.5); White Blood Count 5.7 K/mcL (4.3-11.1)
[2021-02-11 05:33] LABS: BUN/Creatinine Ratio 16 (6-26); Blood Urea Nitrogen 14 mg/dL (8-23); Calcium 9.6 mg/dL (8.6-10.3); Carbon Dioxide 28 mEq/L (23-29); Chloride 106 mEq/L (98-107); Glucose 88 mg/dL (70-105); Osmolality,Calculated 290 (280-300); Potassium 3.6 mEq/L (3.5-5.1); Sodium 140 mEq/L (136-145); eGFR For African Americans > 60 (> 60); eGFR For Non-African Americans > 60 (> 60)
[2021-02-11 05:34] LABS: INR 1.7; Prothrombin Time 19.3 Seconds (9.4-12.1)
[2021-02-11] MEDS: Cefdinir 300 MG CAPSULE PO SCH ×2 (09:38→20:21)
[2021-02-11] MEDS: amLODIPine 5 MG TABLET PO SCH (09:38)
[2021-02-11] MEDS: OLANZapine 5 MG TAB.RAPDIS PO SCH ×2 (09:39→20:21)
[2021-02-11] MEDS ORDERED: *HR* Warfarin 4 MG TABLET PO ONE (18:00)
[2021-02-11] MEDS: Melatonin 3 MG TABLET PO PRN (20:20)
[2021-02-11] MEDS: Acetaminophen 325 MG TABLET PO PRN (20:20)
[2021-02-12 04:17] LABS: INR 1.6; Prothrombin Time 18.6 Seconds (9.4-12.1)
[2021-02-12] MEDS: amLODIPine 5 MG TABLET PO SCH (07:43)
[2021-02-12] MEDS: Cefdinir 300 MG CAPSULE PO SCH ×2 (07:43→20:28)
[2021-02-12] MEDS: OLANZapine 5 MG TAB.RAPDIS PO SCH ×2 (07:43→20:28)
[2021-02-12] MEDS ORDERED: *HR* Warfarin 5 MG TABLET PO ONE (18:00)
[2021-02-13 05:23] LABS: INR 1.8
[2021-02-13] MEDS: amLODIPine 5 MG TABLET PO SCH (09:20)
[2021-02-13] MEDS: OLANZapine 5 MG TAB.RAPDIS PO SCH ×2 (09:20→20:22)
[2021-02-13] MEDS: Cefdinir 300 MG CAPSULE PO SCH (09:20)
[2021-02-13] MEDS ORDERED: Cefdinir 300 MG CAPSULE PO SCH (13:39)
[2021-02-13] MEDS: Acetaminophen 325 MG TABLET PO PRN (15:02)
[2021-02-13] MEDS ORDERED: *HR* Warfarin 3 MG TABLET PO SCH (18:00)
[2021-02-13] MEDS: Melatonin 3 MG TABLET PO PRN (20:22)
[2021-02-14 05:43] LABS: INR 1.7; Prothrombin Time 19.2 Seconds (9.4-12.1)
[2021-02-14] MEDS: amLODIPine 5 MG TABLET PO SCH (07:53)
[2021-02-14] MEDS: OLANZapine 5 MG TAB.RAPDIS PO SCH ×2 (07:53→20:31)
[2021-02-14] MEDS ORDERED: *HR* Warfarin 3 MG TABLET PO ONE (18:00)
[2021-02-14] MEDS: Melatonin 3 MG TABLET PO PRN (20:31)
[2021-02-15 05:24] LABS: INR 1.8; Prothrombin Time 20.1 Seconds (9.4-12.1)
[2021-02-15] MEDS: amLODIPine 5 MG TABLET PO SCH (09:21)
[2021-02-15] MEDS: OLANZapine 5 MG TAB.RAPDIS PO SCH ×2 (09:21→21:40)
[2021-02-15] MEDS ORDERED: *HR* Warfarin 5 MG TABLET PO ONE (18:00)
[2021-02-16] MEDS: Melatonin 3 MG TABLET PO PRN ×2 (00:22→20:27)
[2021-02-16 05:11] LABS: INR 1.8; Prothrombin Time 20.3 Seconds (9.4-12.1)
[2021-02-16] MEDS: OLANZapine 5 MG TAB.RAPDIS PO SCH ×2 (09:21→20:27)
[2021-02-16] MEDS: amLODIPine 5 MG TABLET PO SCH (09:21)
[2021-02-16] MEDS ORDERED: *HR* Warfarin 5 MG TABLET PO ONE (18:00)
[2021-02-17 06:58] LABS: INR 1.7; Prothrombin Time 18.9 Seconds (9.4-12.1)
[2021-02-17] MEDS: amLODIPine 5 MG TABLET PO SCH (09:28)
[2021-02-17] MEDS: OLANZapine 5 MG TAB.RAPDIS PO SCH ×2 (09:29→22:42)
[2021-02-17] MEDS ORDERED: *HR* Warfarin 7.5 MG TABLET PO ONE (18:00)
[2021-02-17] MEDS: Melatonin 3 MG TABLET PO PRN (22:42)
[2021-02-18 05:02] LABS: Basophils % 0.5 %; Eosinophils # 0.2 K/mcL (0.0-0.6); Eosinophils % 2.3 %; Hematocrit 43.4 % (37.5-50.1); Hemoglobin 14.2 g/dL (12.9-16.9); Immature Granulocytes % 0.1 % (0-4); Lymphocytes # 1.7 K/mcL (0.6-4.6); Lymphocytes % 22.3 %; Mean Corpuscular HGB Conc 32.7 g/dL (31.6-35.5); Mean Corpuscular Hemoglobin 30.8 pg (28.0-33.3); Mean Corpuscular Volume 94.1 fL (83.0-100.0); Mean Platelet Volume 10.9 fL (9.4-12.4); Monocytes # 1.1 K/mcL (0.0-1.3); Monocytes % 15.2 %; Neutrophils # 4.4 K/mcL (1.6-8.9); Platelet Count 222 K/mcL (140-400); Red Blood Count 4.61 M/mcL (4.19-5.50); Red Cell Distribution Width 13.8 % (11.5-14.5); Segmented Neutrophils % 59.6 %; White Blood Count 7.4 K/mcL (4.3-11.1)
[2021-02-18 05:25] LABS: BUN/Creatinine Ratio 21 (6-26); Blood Urea Nitrogen 18 mg/dL (8-23); Calcium 9.2 mg/dL (8.6-10.3); Carbon Dioxide 32 mEq/L (23-29); Chloride 105 mEq/L (98-107); Glucose 86 mg/dL (70-105); Osmolality,Calculated 297 (280-300); Potassium 3.7 mEq/L (3.5-5.1); Sodium 143 mEq/L (136-145); eGFR For African Americans > 60 (> 60); eGFR For Non-African Americans > 60 (> 60)
[2021-02-18] MEDS: OLANZapine 5 MG TAB.RAPDIS PO SCH ×2 (09:40→23:47)
[2021-02-18] MEDS: amLODIPine 5 MG TABLET PO SCH (09:40)
[2021-02-18] MEDS ORDERED: *HR* Warfarin 5 MG TABLET PO ONE (18:00)
[2021-02-19 08:40] LABS: INR 2.1; Prothrombin Time 23.6 Seconds (9.4-12.1)
[2021-02-19] MEDS: amLODIPine 5 MG TABLET PO SCH (09:03)
[2021-02-19] MEDS: OLANZapine 5 MG TAB.RAPDIS PO SCH ×2 (09:03→20:30)
[2021-02-19] MEDS ORDERED: *HR* Warfarin 5 MG TABLET PO ONE (18:00)
[2021-02-19] MEDS: Melatonin 3 MG TABLET PO PRN (20:30)
[2021-02-20 07:12] LABS: INR 1.8; Prothrombin Time 20.8 Seconds (9.4-12.1)
[2021-02-20] MEDS: OLANZapine 5 MG TAB.RAPDIS PO SCH ×2 (11:02→20:04)
[2021-02-20] MEDS: amLODIPine 5 MG TABLET PO SCH (11:02)
[2021-02-20] MEDS ORDERED: *HR* Warfarin 5 MG TABLET PO ONE (18:19)
[2021-02-20] MEDS: Melatonin 3 MG TABLET PO PRN (20:04)
[2021-02-20] MEDS: Acetaminophen 325 MG TABLET PO PRN (20:04)
[2021-02-21 06:31] LABS: INR 1.9; Prothrombin Time 21.3 Seconds (9.4-12.1)
[2021-02-21] MEDS: OLANZapine 5 MG TAB.RAPDIS PO SCH ×2 (09:07→19:49)
[2021-02-21] MEDS: amLODIPine 5 MG TABLET PO SCH (09:08)
[2021-02-21] MEDS ORDERED: *HR* Warfarin 5 MG TABLET PO ONE (18:00)
[2021-02-21] MEDS: Melatonin 3 MG TABLET PO PRN (19:49)
[2021-02-21] MEDS: Acetaminophen 325 MG TABLET PO PRN (19:49)
[2021-02-22 06:50] LABS: INR 1.7; Prothrombin Time 19.8 Seconds (9.4-12.1)
[2021-02-22] MEDS: OLANZapine 5 MG TAB.RAPDIS PO SCH ×2 (09:08→20:53)
[2021-02-22] MEDS: amLODIPine 5 MG TABLET PO SCH (09:09)
[2021-02-22] MEDS ORDERED: *HR* Warfarin 7.5 MG TABLET PO ONE (18:00)
[2021-02-23 05:19] LABS: INR 1.7; Prothrombin Time 19.6 Seconds (9.4-12.1)
[2021-02-23 08:03] VITALS: BP 141/74
[2021-02-23] MEDS: amLODIPine 5 MG TABLET PO SCH (08:07)
[2021-02-23] MEDS: OLANZapine 5 MG TAB.RAPDIS PO SCH (08:08)
== END 2021-02-23 09:15 ==
LOC: EMEROOARM 06:40 → 3ANU 06:40 → SUATTDRO 09:23 → 3ANU 10:03
PROVIDERS: ADMIT Internal Medicine; ATTEND General Practice